=== PATIENT | female | born 1975 | race Hispanic/Latino ===

== ENCOUNTER 2025-01-24 15:49 | Emergency (ER) | payer BC, OTHER ==
[~2025-01-24] VITALS: Ht 167.6 cm; Wt 73.5 kg
[2025-01-24] MEDS: LACTATED RINGERS 1000ML 1,000 ML IV SCH (16:01)
--- NOTE | 2025-01-24 16:09 | EKG ---
[facility] Test Date: 2025-01-24 Test Time: 16:04:35 Pat Name: YOKO AYALA Department: [facility] Room: Gender: F Underlay Stitcher: [id number] : 1975 Requested By: CHI IBARRA Order Number: [id number] Reading MD: Gonzalo Gustafson Measurements Intervals [place] Rate: 82 P: 66 NC: 156 QRS: 25 QRSD: 85 T: 38 QT: 387 QTc: 451 Interpretive Statements Sinus rhythm No previous ECG available for comparison Electronically Signed On 01-25-2025 12:28:29 CDT by Gonzalo Gustafson Please click the below link to view image of tracing.
[2025-01-24 16:20] LABS: BASOPHILS # (AUTO) 0.02 K/uL (0.00-0.20); BASOPHILS % (AUTO) 0.3 % (0.0-5.0); EOSINOPHILS # (AUTO) 0.09 K/uL (0.00-0.70); EOSINOPHILS % (AUTO) 1.4 % (0.0-8.0); HEMATOCRIT 38.9 % (36-48); IMMATURE GRANULOCYTE ABSOLUTE 0.01 K/uL (0-1); LYMPHOCYTES % (AUTO) 46.9 % (21.0-51.0); MEAN CORPUSCULAR HEMOGLOBIN 31.3 pg (27.0-33.0); MEAN CORPUSCULAR HGB CONC 33.7 g/dL (32.0-36.0); MEAN CORPUSCULAR VOLUME 93.1 fL (79-99); MONOCYTES # (AUTO) 0.5 K/uL (0.1-1.0); NEUTROPHILS # (AUTO) 2.8 K/uL (1.8-7.7); NEUTROPHILS % (AUTO) 43.2 % (40.0-77.0); PLATELET COUNT (AUTO) 283 K/uL (130-400); RED BLOOD CELL COUNT(AUTO) 4.18 MIL/uL (4.00-5.50); RED CELL DISTRIBUTION WIDTH 12.6 % (11.0-15.5); WHITE BLOOD COUNT (AUTO) 6.5 K/uL (4.8-10.8)
--- NOTE | 2025-01-24 16:20 | ERN ---
General Chief Complaint: Dizzy/Light Headed Stated Complaint: DIZZINESS Time Seen by MD: 15:51 Source: patient History of Present Illness Initial Comments Patient is a 49-year-old female coming in with vertigo for two months. Patient states that she was evaluated on two separate occasions laboratory workup did not disclose findings but states that she has continued to be very dizzy in his here for further evaluation. Allergies: Coded Allergies: No Known Drug Allergies (Unverified Allergy, Unknown, 01/24/25) Past Medical History Past Medical History: Hypertension Past Surgical History: None Results Laboratory and Microbiology Lab and Micro Result Laboratory Tests Test 01/24/25 16:10 01/24/25 16:26 White Blood Count 6.5 K/uL (4.8-10.8) Red Blood Count 4.18 MIL/uL (4.00-5.50) Hemoglobin 13.1 g/dL (12.0-16.0) Hematocrit 38.9 % (36-48) Mean Corpuscular Volume 93.1 fL (79-99) Mean Corpuscular Hemoglobin 31.3 pg (27.0-33.0) Mean Corpuscular Hemoglobin Concent 33.7 g/dL (32.0-36.0) Red Cell Distribution Width 12.6 % (11.0-15.5) Platelet Count 283 K/uL (130-400) Mean Platelet Volume 9.8 fL (7.5-10.5) Immature Granulocyte % (Auto) 0.2 % (0-1) Neutrophils (%) (Auto) 43.2 % (40.0-77.0) Lymphocytes (%) (Auto) 46.9 % (21.0-51.0) Monocytes (%) (Auto) 8.0 % (3.0-13.0) Eosinophils (%) (Auto) 1.4 % (0.0-8.0) Basophils (%) (Auto) 0.3 % (0.0-5.0) Neutrophils # (Auto) 2.8 K/uL (1.8-7.7) Lymphocytes # (Auto) 3.0 K/uL (1.0-4.8) Monocytes # (Auto) 0.5 K/uL (0.1-1.0) Eosinophils # (Auto) 0.09 K/uL (0.00-0.70) Basophils # (Auto) 0.02 K/uL (0.00-0.20) Absolute Immature Granulocyte (auto 0.01 K/uL (0-1) Nucleated Red Blood Cells 0.0 % (0.0-0.19) Prothrombin Time 10.0 SEC (9.6-11.6) Prothromb Time International Ratio 0.94 (0.85-1.15) Activated Partial Thromboplast Time 24.4 SEC (26.3-35.5) L Sodium Level 140 mmol/L (136-145) Potassium Level 3.4 mmol/L (3.5-5.1) L Chloride Level 104 mmol/L (101-111) Carbon Dioxide Level 25 mmol/L (21-32) Blood Urea Nitrogen 15 mg/dL (7-18) Creatinine 0.7 mg/dL (0.5-1.0) Glomerular Filtration Rate Calc 105 mL/min (>90) Random Glucose 158 mg/dL (70-105) H Total Calcium 8.8 mg/dL (8.5-10.1) Magnesium Level 2.00 mg/dL (1.80-2.40) Total Creatine Kinase 112 U/L (21-232) Troponin I High Sensitivity < 4.0 ng/L (4-50) L B-Type Natriuretic Peptide 10 pg/mL (0-100) Urine Color COLORLESS (YELLOW) Urine Appearance CLEAR (CLEAR) Urine pH 6.0 (5.0-8.0) Urine Specific [place] 1.011 (1.001-1.031) Urine Protein NEGATIVE mg/dL (NEGATIVE) Urine Glucose (UA) NEGATIVE mg/dL (NEGATIVE) Urine Ketones NEGATIVE mg/dL (NEGATIVE) Urine Occult Blood MODERATE (NEGATIVE) H Urine Nitrate NEGATIVE (NEGATIVE) Urine Bilirubin NEGATIVE mg/dL (NEGATIVE) Urine Urobilinogen 0.2 mg/dL (0.2-1.0) Urine Leukocyte Esterase 500 Trevor/uL (NEGATIVE) H Urine RBC 6-10 /HPF (0-1) H Urine WBC 11-25 /HPF (0-1) H Urine Squamous Epithelial Cells FEW /HPF (0-2) Urine Bacteria RARE /HPF (None Seen) EKG/XRAY/US/CT/MRI EKG Comment 01/24/2025 TIME 4:04 P.M. VENTRICULAR RATE 82 SINUS RHYTHM SC [address] WAVE ELEVATION OR DEPRESSION X-RAY Comment [id number] [id number] IMAGING REPORT Signed PATIENT: YOKO AYALA MR#: [id number] : 1975 SEX: F AGE: 49 LOCATION: ED ORDER 56 STATUS: REG ER [facility] REPORT#: [id number] SERVICE 155 REASON: vertigo ORDERING PHYSICIAN: CHI IBARRA MD PROCEDURE: CXR1VW - CHEST 1VW CHEST 1VW HISTORY: Vertigo COMPARISON: None FINDINGS: A frontal projection of the chest was obtained. No acute pulmonary infiltrates is seen. The heart is normal in size. Mild degenerative changes are seen. No evidence of aortic calcification is seen. IMPRESSION: 1. No acute pulmonary infiltrate is seen. DICTATED BY: SOCRATES ZAMBRANO MD DATE: 01/24/251640 ELECTRONICALLY SIGNED BY: SOCRATES ZAMBRANO MD DATE: 01/24/[address] Scan Comment IMAGING REPORT Signed PATIENT: YOKO AYALA MR#: [id number] : 1975 SEX: F AGE: 49 LOCATION: [facility] ORDER 56 STATUS: REG ER REPORT#: [id number] SERVICE 155 REASON: vertigo ORDERING PHYSICIAN: CHI IBARRA MD PROCEDURE: HEAD WO - CT HEAD/BRAIN W/O CONTRAST CT HEAD WITHOUT CONTRAST INDICATION: Vertigo TECHNIQUE: Noncontrast axial helical CT images from the vertex through the skull base using 5 mm slice thickness without contrast material. CT was performed with one or more of the following dose reduction techniques: Automated exposure control, adjustment of the mA and/or kV according to patient size, or use of iterative reconstruction technique. COMPARISON: None FINDINGS: The cerebral and cerebellar hemispheres are age-appropriate in appearance. No evidence for abnormal extra-axial fluid collections or masses. The ventricles and sulci are normal in size and configuration. No evidence for intracranial parenchymal, epidural, or subdural hemorrhage, mass effect or midline shift. The villasenor-white matter differentiation is well preserved. No secondary evidence to suggest acute ischemia. The brainstem and cerebellum appear normal. The visualized orbits appear unremarkable. The visible paranasal sinuses and mastoid air cells are clear. The calvarium appears normal. IMPRESSION: No acute intracranial process identified. DICTATED BY: TWYLA CHIU MD DATE: 01/24/251715 ELECTRONICALLY SIGNED BY: TWYLA CHIU MD DATE: 01/24/251718 [facility] MDM: DIFFERENTIAL DIAGNOSIS: DEHYDRATION, VERTIGO, UTI, RATIONALE: TESTS CONSIDERED AND ORDERED SECONDARY TO SHARED DECISION MAKING INCLUDE: PREVIOUS OUTSIDE RECORDS REVIEWED: OLD ER VISITS. RISK OF COMPLICATION AND/OR MORBIDITY OR MORTALITY OF PATIENT MANAGEMENT: NONE MEDICATIONS-PER MEDICATION RECONCILIATION PATIENT IS A 49-YEAR-OLD FEMALE COMING IN TO BE EVALUATED FOR VERTIGO. SHE STATES THAT IT HAS BEEN ONGOING FOR TWO WEEKS BUT RECENTLY GOT WORSE. SHE WAS EVALUATED AT ANOTHER EMERGENCY ROOM AND IT IN A HOSPITAL IN [place] AND SHE WAS TOLD EVERYTHING WAS FINE. LABORATORY WORKUP POSITIVE FOR URINARY TRACT INFECTION IMAGING STUDIES NEGATIVE FOR ACUTE FINDINGS. PATIENT WILL BE DISCHARGED IN STABLE CONDITION WITH A DIAGNOSIS OF DEHYDRATION UTI AND HAS A KALEMIA. I DID NOT ADVISED HIM APPROPRIATE FOLLOW UP WITH PCP STATES AN ENT FOR FURTHER EVALUATION AND LONG-TERM MANAGEMENT. ED Course Orders Procedure Category Date Status Time Cbc With Differential LAB 01/24/25 Complete 15:55 Prothrombin Time With LAB 01/24/25 Complete INR 15:55 B-Type Natriuretic LAB 01/24/25 Complete Peptide 15:55 Chest 1vw RAD 01/24/25 Resulted 15:55 12 Lead Ekg Tracing- EKG 01/24/25 Complete Technical 15:55 Lactated Ringers PHA 01/24/25 In Process 1000ml (Lactated 16:00 Magnesium LAB 01/24/25 Complete 15:55 Urinalysis Profile LAB 01/24/25 Complete 15:55 Partial LAB 01/24/25 Complete Thromboplastin Time 15:55 Basic Metabolic Panel LAB 01/24/25 Complete 15:55 Ct Head/Brain W/O CT 01/24/25 Resulted Contrast 15:55 Cardiac Panel LAB 01/24/25 Complete 16:10 Culture Urine TENA 01/24/25 In Process 16:55 Ceftriaxone 1g Vial PHA 01/24/25 Verified (Rocephine 1g Inj) 17:30 Current Medications Medications (Trade) Dose Ordered Sig/Vitor Route PRN Reason Start Time Stop Time Status Last Admin Dose Admin Lactated Ringer's 1,000 ml @ 0 mls/hr ONCE IV 01/24/25 16:00 01/25/25 15:59 01/24/25 16:01 Vital Signs Date Time Temp Pulse Resp B/P (MAP) Pulse Ox O2 Delivery O2 Flow Rate FiO2 01/24/25 15:50 99.0 82 16 155/84 97 Room Air DX & DISP Disposition: Discharge Departure Impression: Primary Impression: UTI (urinary tract infection) Additional Impression: Dehydration Condition: Stable Scripts Meclizine HCl (Antivert) 25 Mg Tab.chew 25 MG PO BID PRN for DIZZINESS for 5 Days, #10 TAB.CHEW Prov: CHI IBARRA MD 01/24/25 Cephalexin Monohydrate (Keflex) 500 Mg Cap 1 CAP PO BID for 10 Days, #20 CAP 0 Refills Prov: CHI IBARRA MD 01/24/25 Additional Instructions: FOLLOW-UP WITH PRIMARY CARE PROVIDER IN 1 TO 2 DAYS. TAKE MEDICATIONS DIRECTED HERE IN THE EMERGENCY ROOM. OKAY TO CONTINUE HOME MEDICATIONS UNLESS OTHERWISE DISCUSSED DURING YOUR VISIT IN THE EMERGENCY ROOM TODAY. RETURN TO YOUR NEAREST EMERGENCY ROOM IF SYMPTOMS WORSEN OR IF THERE IS NO IMPROVEMENT. CALL 911 IF YOU NEED IMMEDIATE ASSISTANCE. TAKE TYLENOL [id number]-[id number] NEEDED AND IF NO CONTRAINDICATIONS ARE PRESENT. INCREASE ORAL HYDRATION. A WOUND CULTURE OR URINE CULTURE WAS ORDERED HERE IN THE EMERGENCY ROOM DEPARTMENT PLEASE FOLLOW-UP WITH PRIMARY CARE PROVIDER AND ADVISE THEM TO GET REPEAT PORTS FROM OUR FACILITY. IF YOU HAD ANY ELIE WRAP/SPLINTS THAT WERE APPLIED HERE, PLEASE DO NOT REMOVE THEM UNTIL YOU SEE YOUR PRIMARY CARE OR SPECIALTY. REFERRALS: Referrals: DARIO KHAN MD (PCP) APRIL CELAYA MD Time of Disposition: 17:29 CHI IBARRA MD January 24, 2025 16:20
[2025-01-24 16:27] LABS: CARBON DIOXIDE 25 mmol/L (21-32); CHLORIDE 104 mmol/L (101-111); CREATININE 0.7 mg/dL (0.5-1.0); GLOMERULAR FILTR. RATE CALC 105 mL/min (>90); GLUCOSE,RANDOM 158 mg/dL (70-105); POTASSIUM 3.4 mmol/L (3.5-5.1); SODIUM SERUM 140 mmol/L (136-145); UREA NITROGEN, BLOOD 15 mg/dL (7-18)
[2025-01-24 16:29] LABS: INR 0.94 (0.85-1.15)
[2025-01-24 16:30] LABS: PARTIAL THROMBOPLASTIN TIME 24.4 SEC (26.3-35.5)
[2025-01-24 16:34] LABS: CREATINE KINASE, TOTAL 112 U/L (21-232)
[2025-01-24 16:41] LABS: B-TYPE NATRIURETIC PEPTIDE 10 pg/mL (0-100)
--- NOTE | 2025-01-24 16:48 | HMCIMG ---
CHEST 1VW HISTORY: Vertigo COMPARISON: None FINDINGS: A frontal projection of the chest was obtained. No acute pulmonary infiltrates is seen. The heart is normal in size. Mild degenerative changes are seen. No evidence of aortic calcification is seen. IMPRESSION: 1. No acute pulmonary infiltrate is seen.
[2025-01-24 16:54] LABS: APPEARANCE,URINE CLEAR (CLEAR); BILIRUBIN,URINE NEGATIVE (NEGATIVE); COLOR,URINE COLORLESS (YELLOW); GLUCOSE, URINE (UA) NEGATIVE (NEGATIVE); KETONES,URINE NEGATIVE (NEGATIVE); LEUKOCYTE ESTERASE ,URINE 500 Leu/uL (NEGATIVE); NITRATE,URINE NEGATIVE (NEGATIVE); OCCULT BLOOD,URINE MODERATE (NEGATIVE); PROTEIN,URINE NEGATIVE (NEGATIVE); UROBILINOGEN,URINE 0.2 mg/dL (0.2-1.0)
[2025-01-24 16:55] LABS: ADD UA MICROSCOPIC YES
[2025-01-24 17:07] LABS: BACTERIA,URINE RARE /HPF (None Seen); SQUAMOUS EPITHELIAL CELL,UR FEW /HPF (0-2)
--- NOTE | 2025-01-24 17:19 | HMCIMG ---
CT HEAD WITHOUT CONTRAST INDICATION: Vertigo TECHNIQUE: Noncontrast axial helical CT images from the vertex through the skull base using 5 mm slice thickness without contrast material. CT was performed with one or more of the following dose reduction techniques: Automated exposure control, adjustment of the mA and/or kV according to patient size, or use of iterative reconstruction technique. COMPARISON: None FINDINGS: The cerebral and cerebellar hemispheres are age-appropriate in appearance. No evidence for abnormal extra-axial fluid collections or masses. The ventricles and sulci are normal in size and configuration. No evidence for intracranial parenchymal, epidural, or subdural hemorrhage, mass effect or midline shift. The villasenor-white matter differentiation is well preserved. No secondary evidence to suggest acute ischemia. The brainstem and cerebellum appear normal. The visualized orbits appear unremarkable. The visible paranasal sinuses and mastoid air cells are clear. The calvarium appears normal. IMPRESSION: No acute intracranial process identified.
[2025-01-24] MEDS ORDERED: CEPH500B PO (17:30)
[2025-01-24] MEDS ORDERED: MECL-262 PO (17:30)
[2025-01-24] MEDS: cefTRIAXone 1G VIAL IVPB SCH (17:59)
--- NOTE | 2025-01-24 18:10 | NUR ---
PT IS READY FOR DISCHARGE AFTER IV FLUIDS AND ABX
[2025-01-24 18:47] VITALS: BP 147/79; PULSE 80; RESP 16; TEMP 98.9; O2SAT 98
[2025-01-24] MEDS ORDERED: DICL20GE TP (18:56)
== END 2025-01-24 19:14 | disposition home or self-care (01) ==
LOC: EDH 15:49
DX: N39.0 Urinary tract infection, site not specified (principal); E86.0 Dehydration; I10 Essential (primary) hypertension; Z79.01 Long term (current) use of anticoagulants
CPT/HCPCS: 99284; 96365; 70450; 96361; 71045; 82550; 83735; 84484; 80048; 83880; 85025; 85610; 85730; 87086; 81001; 36415; 93005; J0696